=== PATIENT | female | born 1970 ===

== ENCOUNTER 2019-08-01 10:54 | Outpatient (CLI) | payer OTHER | END 2019-08-01 11:01 | disposition home or self-care (01) | LOC: SONOGRAMA 10:54 | DX: N20.1 Calculus of ureter (principal) ==

== ENCOUNTER 2019-08-14 10:39 | Outpatient (CLI) | payer OTHER | END 2019-08-14 10:45 | disposition home or self-care (01) | LOC: RAD 10:39 | DX: M99.03 Segmental and somatic dysfunction of lumbar region (principal) ==

== ENCOUNTER 2019-08-27 14:08 | Outpatient (CLI) | payer OTHER | END 2019-08-27 14:12 | disposition home or self-care (01) | LOC: MAMO-SONO 14:08 | DX: N63.10 Unspecified lump in the right breast, unspecified quadrant (principal); N63.20 Unspecified lump in the left breast, unspecified quadrant; N64.59 Other signs and symptoms in breast; N64.89 Other specified disorders of breast ==

== ENCOUNTER → 2019-08-31 | Outpatient (CLI) | payer OTHER | END | disposition home or self-care (01) | LOC: TOM 10:42 | DX: N20.1 Calculus of ureter (principal) ==